=== PATIENT | female | born 1965 | race Caucasian/White ===

== ENCOUNTER → 2016-10-30 | Outpatient (CLI) | payer OTHER | LOC: MAMO 09:35 | DX: Z12.31 Encounter for screening mammogram for malignant neoplasm of breast (principal); Z90.710 Acquired absence of both cervix and uterus | CPT/HCPCS: G0202 ==

== ENCOUNTER → 2021-03-29 | Outpatient (CLI) | payer OTHER ==
[~2021-03-29] MED LIST: ADULT LOW DOSE81 MG PO; CETIRIZINE HCL10 MG PO; COZAAR100 MG PO; CRESTOR 10 MG T10 MG PO; FENOFIBRATE200 MG PO; GLIPIZIDE10 MG PO; HYDROCHLOROTHIA25 MG PO; JANUVIA100 MG PO; MOBIC15 MG PO; NEURONTIN300 MG PO; PAXIL40 MG PO; VITAMIN B-121000 MC3 PO; VITAMIN D21250 MCG PO; XIIDRA EYEBOTH; ZETIA 10 MG TAB10 MG PO
== END ==
LOC: KOH-I 13:15
DX: R91.1 Solitary pulmonary nodule (principal)
CPT/HCPCS: 71250

== ENCOUNTER → 2021-10-19 | Outpatient (CLI) | payer OTHER | LOC: KOH-I 10-18 10:30 | DX: R93.89 Abnormal findings on diagnostic imaging of other specified body structures (principal); R91.1 Solitary pulmonary nodule | CPT/HCPCS: 71250 ==